=== PATIENT | male | born 1965 | race Caucasian/White ===

== ENCOUNTER → 2021-07-30 | Outpatient (CLI) | payer OTHER ==
[~2021-07-30] MED LIST: ACTOS 45 MG45 MG PO; AMARYL2 M1 PO; ASA81BEC PO; CARVEDILOL25 MG PO; COZAAR 25 MG TA25 M1 PO; HYDROCHLOROTHIA25 M1 PO; LIPITOR 10 MG10 M1 PO; NORVASC5 MG PO; SINGULAIR 10 MG10 MG PO; TRULICITY0.75 MG/0. INJECTION
== END ==
LOC: LAB 08:36
PROVIDERS: ATTEND Student in an Organized Health Care Education/Training Program
DX: Z01.812 Encounter for preprocedural laboratory examination (principal); Z20.822 Contact with and (suspected) exposure to COVID-19

== ENCOUNTER → 2021-07-31 | Outpatient (CLI) | payer OTHER ==
[~2021-07-31] VITALS: Ht 177.8 cm; Wt 136.1 kg
--- NOTE | ~2021-07-31 | P ---
[facility] [place] [address] [place] [address] PROCEDURE REPORT Name: JACQUELINE CANO [facility]: [facility] [id number] Admission: 07/31/21 Attend Phys: Lamin Dexter Discharge: Date of : 69 Report #: [id number] THIS REPORT FOR: cc: Jamil Turcios Alan Z. DO McElhinney, Christian C. MD ~ cc: Jamil Turcios DO DATE OF SERVICE: 07/31/2021 PROCEDURE PERFORMED: Colonoscopy with biopsies. HISTORY OF PRESENT ILLNESS: The patient is a 56-year-old male with a history of colon polyps, last colonoscopy 8 years ago. He denies any symptoms at this time. No family history of colon cancer. DESCRIPTION OF PROCEDURE: The risks and benefits of the procedure were explained to the patient, those risks including but not limited to bleeding, perforation and the risk of sedation. He understood these risks and gave informed consent. Sedation was given using propofol per Anesthesia. Next, a digital rectal exam was initially performed, which was normal. Next, using a standard Olympus colonoscope, the scope was placed in the patient's anus and advanced under direct vision to the cecum. The overall prep was good. In the cecum, there was a 3 mm sessile polyp. This was removed with cold forceps, otherwise normal. The ileocecal valve was normal. Ascending, transverse and descending colon were normal. In the sigmoid colon, a 4 mm sessile polyp was noted, also removed with cold forceps, otherwise normal. In the rectum, a 3-mm sessile polyp noted and removed with cold forceps. On retroflexion, no abnormalities were noted. The scope was then withdrawn and the procedure terminated. The patient tolerated the procedure well. IMPRESSION: 1. Three small colonic polyps. 2. Otherwise, normal colonoscopy. RECOMMENDATIONS: 1. Await biopsy results. 2. If polyps are hyperplastic, repeat in 10 years; if adenomatous polyp, repeat in 5 years. Thank you for allowing me to participate in his care. By: 0913 [id number] Lamin Nelson MD /nt
--- NOTE | 2021-08-01 17:06 | PATH ---
[facility] [address] [place] [address] PATHOLOGY RPT PROCEDURE Name: GEORGES BRITTON Room #: REG RAMÓN Cade.#: [id number] Admission: 07/31/21 Date of : 69 Discharge: Report #: [id number] Path Case #: [id number] [facility] Accession Number: [id number] . 01 Material submitted: . PART A: cecum - CECAL POLYP PART B: sigmoid colon - SIGMOID COLON POLYP PART C: rectum - RECTAL POLYP . 01 Clinical history: . COLONOSCOPY/ HX OF POLYPS . 02 Diagnosis: A. Polyp, cecal polyp, endoscopic biopsy: - Inflamed hyperplastic polyp. - Negative for dysplasia. . B. Polyp, sigmoid colon polyp, endoscopic biopsy: - Minute hyperplastic polyp and lymphoid aggregate. - Negative for dysplasia. . C. Polyp, rectal polyp, endoscopic biopsy: - Minute tubular adenoma. - Negative for high-grade dysplasia. (IUV:violetta; 08/01/2021) QMS 08/01/2021 1354 Local . 02 Electronically signed: . Gerda Taylor MD, Pathologist NPI- [id number] . 01 Gross description: . A. The specimen is received in formalin, labeled "Georges Britton, cecal polyp". It consists of 3 benitez irregular soft tissue fragments measuring 0.5 x 0.4 x 0.1 cm in aggregate. The specimen is entirely submitted between sponges in A1. . B. The specimen is received in formalin, labeled "Georges Britton, sigmoid colon polyp". It consists of 2 benitez polypoid soft tissue fragments measuring 0.3 and 0.5 cm. The specimen is entirely submitted between sponges in B1. . C. The specimen is received in formalin, labeled "Georges Britton, rectal polyp". It consists of 2 benitez polypoid soft tissue fragments measuring 0.1 and 0.2 cm. The specimen is entirely submitted between sponges in C1. (MRF; 07/31/2021) [facility] [place] [place] 07/31/[address] [address] PATHOLOGY RPT PROCEDURE Name: GEORGES BRITTON Room #: REG RAMÓN Bradford#: [id number] Admission: 07/31/21 Date of : 69 Discharge: Report #: [id number] Path Case #: [id number] . 02 Pathologist provided ICD-10: K63.5, D12.8 . 02 CPT . 282529, 654303, 645418 Specimen Comment: A courtesy copy of this report has been sent to [phone], [phone] Specimen Comment: [phone] Specimen Comment: Report sent to / DR MARTINEZ Performed at: [address], [place] [id number] MD Colt Valverde MD Phone: [phone] Performed at: [address] [id number] MD Gerda Taylor MD Phone: [phone]
== END | disposition home or self-care (01) ==
LOC: GI
PROVIDERS: ATTEND Specialist
DX: Z12.11 Encounter for screening for malignant neoplasm of colon (principal); Z86.010 Personal history of colon polyps; D12.8 Benign neoplasm of rectum; K51.40 Inflammatory polyps of colon without complications; I10 Essential (primary) hypertension; E78.5 Hyperlipidemia, unspecified; E11.9 Type 2 diabetes mellitus without complications; Z87.891 Personal history of nicotine dependence; Z98.890 Other specified postprocedural states; Z79.899 Other long term (current) drug therapy; Z88.0 Allergy status to penicillin; Z88.2 Allergy status to sulfonamides
CPT/HCPCS: 62110; 62900